=== PATIENT | female | born 1985 | race Hispanic/Latino ===

== ENCOUNTER 2023-03-05 22:32 | Emergency (ER) | payer SELFPAY ==
[2023-03-05] MEDS ORDERED: Ketorolac Tromethamine 30 MG/ML VIAL ONE (23:11)
== END 2023-03-06 | disposition home or self-care (01) ==
LOC: CSHERS 22:32
DX: M77.32 Calcaneal spur, left foot (principal); F17.200 Nicotine dependence, unspecified, uncomplicated
CPT/HCPCS: 96372; J1885

== ENCOUNTER 2023-08-30 23:27 | Emergency (ER) | payer SELFPAY ==
[2023-08-31] MEDS ORDERED: Ketorolac Tromethamine 30 MG/ML VIAL ONE (00:12)
== END 2023-08-31 01:01 | disposition home or self-care (01) ==
LOC: CSHERS 23:27
DX: M72.2 Plantar fascial fibromatosis (principal); M25.552 Pain in left hip
CPT/HCPCS: J1885